=== PATIENT | female | born 1980 | race Caucasian/White ===

== ENCOUNTER 2016-11-05 12:03 | Emergency (ER) | payer BC ==
[2016-11-05 14:12] VITALS: BP 129/75
--- NOTE | 2016-11-05 14:45 | UC ---
Throat Pain/Nasal Evert HPI - HPI Summary HPI Summary: sinus pain/pressure, green purulent drainage for 3 weeks. No history of frequent sinusitis, nonsmoker. Started off like a cold, just never improved. Now headache, PND, can't sleep, constantly blowing nose. Mild cough. Ears painful - History of Current Complaint Chief Complaint: UCRespiratory Stated Complaint: SINUS COMPLAINT Time Seen by Provider: 11/05/16 14:35 Hx Obtained From: Patient Hx Last Menstrual Period: 10/14/16 Onset/Duration: Gradual Onset Severity: Moderate Cough: Nonproductive Associated Signs & Symptoms: Positive: Hoarseness, Sinus Discomfort, Nasal Discharge. Negative: Dysphagia, FB Sensation, Drooling, Fever, Vomiting - Epiglottits Risk Factors Epiglottis Risk Factors: Negative - Allergies/Home Medications Allergies/Adverse Reactions: Allergies Allergy/AdvReac Type Severity Reaction Status Date / Time Ciprofloxacin AdvReac Intermediate See Comment Verified 11/05/16 14:12 PMH/Surg Hx/FS Hx/Imm Hx Previously Healthy: Yes - Surgical History Surgical History: Yes Surgery Procedure, Year, and Place: KIDNEY SURGERY AT AGE 5. Ovarian Cyst 2012 - Family History Known Family History: Negative: Respiratory Disease - no asthma - Social History Occupation: Employed Full-time Lives: With Family Alcohol Use: None Substance Use Type: None Smoking Status (MU): Never Smoked Tobacco Review of Systems Constitutional: Negative Skin: Negative Eyes: Negative ENT: Nasal Discharge, Other - sinus pain Respiratory: Cough - mild Cardiovascular: Negative Gastrointestinal: Negative Genitourinary: Negative Motor: Negative Neurovascular: Negative Musculoskeletal: Negative Neurological: Negative Psychological: Negative All Other Systems Reviewed And Are Negative: Yes Physical Exam Triage Information Reviewed: Yes Appearance: Well-Appearing, No Pain Distress, Well-Nourished Vital Signs: Initial Vital Signs Temp 98.6 F 11/05/16 14:10 Pulse 62 11/05/16 14:10 Resp 16 11/05/16 14:10 BP 129/75 11/05/16 14:10 Pulse Ox 99 11/05/16 14:10 Vital Signs Reviewed: Yes Eye Exam: Normal ENT: Positive: Hearing grossly normal, Pharynx normal, Nasal congestion, Nasal drainage, TMs normal, Muffled/hoarse voice - muffled. Negative: TM bulging, TM red, Tonsillar swelling, Tonsillar exudate, Trismus Neck exam: Normal Respiratory Exam: Normal Respiratory: Positive: Lungs clear, Normal breath sounds, No respiratory distress, No accessory muscle use Cardiovascular Exam: Normal Musculoskeletal Exam: Normal Neurological Exam: Normal Neurological: Positive: Alert, Muscle Tone Normal Psychological Exam: Normal Skin Exam: Normal Throat Pain/Nasal Course/Dx - Differential Dx/Diagnosis Differential Diagnosis/HQI/PQRI: Pharyngitis, Sinusitis, URI Provider Diagnoses: sinusitis Discharge - Discharge Plan Condition: Stable Disposition: HOME Prescriptions: Fluconazole 150 MG (NF) [Diflucan 150 mg (NF)] 150 mg PO ONCE PRN #1 tab PRN Reason: vaginal itching Sulfamethox/Trimethoprim DS* [Bactrim DS 800/160 TAB*] 1 tab PO BID #20 tab Patient Education Materials: Sinusitis (ED) Referrals: Diana Beck [Primary Care Provider] -
== END 2016-11-05 15:00 | disposition home or self-care (01) ==
LOC: UCCORT 12:03
DX: J32.9 Chronic sinusitis, unspecified (principal); Z88.1 Allergy status to other antibiotic agents
CPT/HCPCS: 99212; G0463

== ENCOUNTER 2018-01-15 11:27 | Emergency (ER) | payer BC ==
[2018-01-15 13:31] VITALS: BP 103/65
--- NOTE | 2018-01-15 14:55 | UC ---
Throat Pain/Nasal Evert HPI - HPI Summary HPI Summary: Patient has had worsening sore throat over the past 1-2 weeks that seemed to get better but then returned the last 2 days denies fevers some nasal drip. Patient is 25 weeks expecting normal vaginal delivery - History of Current Complaint Chief Complaint: UCGeneralIllness Stated Complaint: ST/SWOLLEN THROAT GLANDS Time Seen by Provider: 01/15/18 13:33 Hx Obtained From: Patient Hx Last Menstrual Period: 10/14/16 ?: Yes Onset/Duration: Gradual Onset, Worse Since - Past couple days Severity: Moderate Pain Intensity: 7 Pain Scale Used: 0-10 Numeric Cough: None Associated Signs & Symptoms: Positive: Nasal Discharge - Allergies/Home Medications Allergies/Adverse Reactions: Allergies Allergy/AdvReac Type Severity Reaction Status Date / Time ciprofloxacin AdvReac Headache Verified 01/15/18 13:25 Home Medications: Home Medications Pnv No.95/Ferrous Fum/Folic AC [ Multivitamin Tablet] 1 each PO DAILY [History Confirmed 01/15/18] PMH/Surg Hx/FS Hx/Imm Hx Previously Healthy: Yes - Surgical History Surgical History: Yes Surgery Procedure, Year, and Place: KIDNEY SURGERY AT AGE 5. Ovarian Cyst 2014 - Family History Known Family History: Negative: Respiratory Disease - no asthma - Social History Occupation: Employed Full-time Lives: With Family Alcohol Use: None Substance Use Type: None Smoking Status (MU): Never Smoked Tobacco Review of Systems Constitutional: Negative Skin: Negative Eyes: Negative ENT: Sore Throat, Nasal Discharge Respiratory: Negative Cardiovascular: Negative Gastrointestinal: Negative Genitourinary: Negative Motor: Negative Neurovascular: Negative Musculoskeletal: Negative Neurological: Negative Psychological: Negative Is Patient Immunocompromised?: No All Other Systems Reviewed And Are Negative: Yes Physical Exam Triage Information Reviewed: Yes Appearance: Well-Appearing, No Pain Distress, Well-Nourished Vital Signs: Initial Vital Signs Temp 98.3 F 01/15/18 13:24 Pulse 86 01/15/18 13:24 Resp 18 01/15/18 13:24 BP 103/65 01/15/18 13:24 Pulse Ox 100 01/15/18 13:24 Vital Signs Reviewed: Yes Eye Exam: Normal Eyes: Positive: Conjunctiva Clear ENT Exam: Normal ENT: Positive: Normal ENT inspection, Hearing grossly normal, Pharynx normal, Nasal congestion, Nasal drainage, TMs normal, Uvula midline. Negative: Tonsillar swelling, Tonsillar exudate, Trismus, Muffled voice, Hoarse voice, Dental tenderness, Sinus tenderness Dental Exam: Normal Neck exam: Normal Neck: Positive: Supple, Nontender, No Lymphadenopathy Respiratory Exam: Normal Respiratory: Positive: Chest non-tender, Lungs clear, Normal breath sounds, No respiratory distress, No accessory muscle use Cardiovascular Exam: Normal Cardiovascular: Positive: RRR, No Murmur, Pulses Normal, Brisk Capillary Refill Musculoskeletal Exam: Normal Musculoskeletal: Positive: Strength Intact - Vital, ROM Intact, No Edema Neurological Exam: Normal Neurological: Positive: Alert, Muscle Tone Normal Psychological Exam: Normal Skin Exam: Normal Diagnostics - Laboratory Diagnostic Studies Completed/Ordered: Rapid Strep (-) Throat Pain/Nasal Course/Dx - Course Assessment/Plan: Rest increase fluids Tylenol , throat lozenges, nasal saline. Follow with PCP when necessary - Differential Dx/Diagnosis Provider Diagnoses: Rhinitis, sore throat Discharge - Sign-Out/Discharge Documenting (check all that apply): Discharge - Discharge Plan Condition: Stable Disposition: HOME Patient Education Materials: Acetaminophen (By mouth), Sodium Chloride (Into the nose), Rhinosinusitis (ED), Viral Syndrome (ED) Referrals: Diana Beck [Primary Care Provider] - If Needed - Billing Disposition and Condition Condition: STABLE Disposition: HOME
== END 2018-01-15 14:32 | disposition home or self-care (01) ==
LOC: UCCORT 11:27
DX: J00 Acute nasopharyngitis [common cold] (principal); Z88.3 Allergy status to other anti-infective agents
CPT/HCPCS: 87651; 99212; G0463

== ENCOUNTER 2018-01-21 20:20 | Emergency (ER) | payer BC ==
[2018-01-21 20:39] VITALS: BP 107/70
--- NOTE | 2018-01-21 21:19 | UC ---
Back Pain HPI - HPI Summary HPI Summary: 37yo female who is 25 weeks , , c/o sudden onset of lumbago today and was sent home from work. She denies dysuria but has the usual urinary frequency as before. Denies fever, radiation to abdomen, cramps, denies vaginal bleeding. States she came to make sure her baby was fine as she did not notice him moving but as she was waiting at , baby started to move. She does not want to take any medication besides tylenol due to the . - History of Current Complaint Chief Complaint: UCBackPain Stated Complaint: LOWER BACK PAIN Time Seen by Provider: 01/21/18 20:44 Hx Obtained From: Patient Hx Last Menstrual Period: 10/14/16 ?: Yes Onset/Duration: Sudden Onset, Lasting Hours Timing: Constant Severity Initially: Moderate Pain Intensity: 7 Character: Dull, Aching Aggravating Factor(s): Movement, Bending, Walking Alleviating Factor(s): Nothing Associated Signs And Symptoms: Positive: Negative - Risk Factors TAD Risk Factors: Negative Cauda Equina Risk Factors: Negative Epidural Abscess Risk Factors: Negative - Allergies/Home Medications Allergies/Adverse Reactions: Allergies Allergy/AdvReac Type Severity Reaction Status Date / Time ciprofloxacin AdvReac Headache Verified 01/21/18 20:32 Home Medications: Home Medications Acetaminophen TAB* [Tylenol TAB*] 650 mg PO Q4H PRN 01/21/18 [History Confirmed 01/21/18] PMH/Surg Hx/FS Hx/Imm Hx Previously Healthy: Yes - Surgical History Surgical History: Yes Surgery Procedure, Year, and Place: KIDNEY SURGERY AT AGE 5. Ovarian Cyst 2013 - Family History Known Family History: Negative: Respiratory Disease - no asthma - Social History Alcohol Use: None Substance Use Type: None Smoking Status (MU): Never Smoked Tobacco Review of Systems Musculoskeletal: Myalgia All Other Systems Reviewed And Are Negative: Yes Physical Exam Triage Information Reviewed: Yes Vital Signs: Initial Vital Signs Temp 98.1 F 01/21/18 20:33 Pulse 72 01/21/18 20:33 Resp 18 01/21/18 20:33 BP 107/70 01/21/18 20:33 Pulse Ox 100 01/21/18 20:33 Vital Signs Reviewed: Yes Eyes: Positive: Conjunctiva Clear ENT: Positive: Hearing grossly normal Neck: Positive: Supple, Nontender, No Lymphadenopathy Respiratory Exam: Normal Respiratory: Positive: Chest non-tender, Lungs clear, Normal breath sounds Cardiovascular: Positive: RRR, No Murmur, Pulses Normal, Brisk Capillary Refill Abdomen Description: Positive: Nontender, No Organomegaly, Other: - gravid, FHR 132x', variable Bowel Sounds: Positive: Present Back Pain Course/Dx - Course Course Of Treatment: Discussed with patient pain control with ibuprofen or tylenol, stretching. Urinalysis was normal, culture results pending. F.u with PCP and control - Differential Dx/Diagnosis Provider Diagnoses: Lumbago Discharge - Sign-Out/Discharge Documenting (check all that apply): Discharge/Admit/Transfer - Discharge Plan Condition: Stable Disposition: HOME Patient Education Materials: Low Back Strain (ED), Ibuprofen (By mouth), Acetaminophen (By mouth) Referrals: Diana Beck [Primary Care Provider] - - Billing Disposition and Condition Condition: STABLE Disposition: HOME
== END 2018-01-21 21:32 | disposition home or self-care (01) ==
LOC: UCCORT 20:20
DX: M54.5 Low back pain (principal); R35.0 Frequency of micturition; Z33.1 Pregnant state, incidental; Z88.3 Allergy status to other anti-infective agents
CPT/HCPCS: 81003; 87086; 99211; G0463

== ENCOUNTER 2019-02-17 07:18 | Emergency (ER) | payer BC ==
[2019-02-17 07:32] VITALS: BP 117/77
[2019-02-17] MEDS ORDERED: Albuterol/Ipratropium NEB.SOL* Albuterol 2.5 MG/Ipratropium 0.5 MG 3 ML INH ONE (08:01)
--- NOTE | 2019-02-17 08:06 | UC ---
Respiratory Complaint HPI - HPI Summary HPI Summary: 38-year-old female with cold symptoms for approximately 3 weeks. She states in the beginning it was more like a sinus infection with greenish nasal coryza but now it's a moist congested cough but no fever. No history of asthma. She is a nonsmoker. - History of Current Complaint Chief Complaint: UCGeneralIllness Stated Complaint: COUGH, CONGESTION Time Seen by Provider: 02/17/19 07:56 Hx Obtained From: Patient Hx Last Menstrual Period: 02/16/19 ?: No Onset/Duration: Gradual Onset, Lasting Weeks Timing: Intermittent Episodes Severity Initially: Moderate - She has been ill for 3 weeks. Severity Currently: Mild Pain Intensity: 0 Character: Cough: Productive Aggravating Factors: Nothing Alleviating Factors: Nothing Associated Signs And Symptoms: Positive: URI, Nasal Congestion - Allergies/Home Medications Allergies/Adverse Reactions: Allergies Allergy/AdvReac Type Severity Reaction Status Date / Time bee venom protein (honey bee) Allergy Anaphylatic Verified 02/17/19 07:33 Shock ciprofloxacin AdvReac Headache Verified 02/17/19 07:32 PMH/Surg Hx/FS Hx/Imm Hx Previously Healthy: Yes - Surgical History Surgical History: Yes Surgery Procedure, Year, and Place: KIDNEY SURGERY AT AGE 5. Ovarian Cyst 2014 - Family History Known Family History: Negative: Respiratory Disease - no asthma - Social History Alcohol Use: Occasionally Substance Use Type: None Smoking Status (MU): Never Smoked Tobacco Review of Systems All Other Systems Reviewed And Are Negative: Yes Respiratory: Positive: Cough Is Patient Immunocompromised?: No Physical Exam Triage Information Reviewed: Yes Appearance: Well-Appearing, No Pain Distress, Well-Nourished Vital Signs: Initial Vital Signs Temp 98.2 F 02/17/19 07:28 Pulse 55 02/17/19 07:28 Resp 16 02/17/19 07:28 BP 117/77 02/17/19 07:28 Pulse Ox 100 02/17/19 07:28 Vital Signs Reviewed: Yes Eyes: Positive: Conjunctiva Clear ENT: Positive: Pharynx normal, Nasal congestion, TMs normal, Uvula midline Neck: Positive: Supple, Nontender, No Lymphadenopathy Respiratory: Positive: No respiratory distress, No accessory muscle use, Rhonchi - Rhonchi at both bases posteriorly, small wheeze with forced expiration., Wheezing Cardiovascular: Positive: RRR, No Murmur, Pulses Normal, Brisk Capillary Refill Musculoskeletal Exam: Normal Neurological Exam: Normal Psychological Exam: Normal Skin Exam: Normal Respiratory Course/Dx - Course Course Of Treatment: Chest x-ray:REPORT: Elevated lung volumes. No focal pulmonary lesion, compelling alveolar consolidation, pleural effusion, pneumothorax. The heart, pulmonary vasculature , and mediastinal contours are unremarkable. Unremarkable soft tissue contours and osseous structures. IMPRESSION: #. Stigmata of obstructive lung disease. No acute pulmonary or cardiac process evident. I'm going to treat the patient with prednisone and a Z-Rosa. Her lungs had increased air movement following the DuoNeb treatment but still with mild rhonchi in the lower bases. She is in no distress. - Differential Dx/Diagnosis Provider Diagnosis: Bronchitis Discharge - Sign-Out/Discharge Documenting (check all that apply): Patient Departure All imaging exams completed and their final reports reviewed: Yes - Discharge Plan Condition: Fair Disposition: HOME Prescriptions: Azithromyxin ROSA (NF) [Z-Rosa (Zithromax) 250 mg tabs #6] 2 tab PO .TODAY, THEN 1 DAILY #6 tab predniSONE [Prednisone 20 MG TAB] 20 mg PO DAILY 9 Days #18 tablet Patient Education Materials: Acute Bronchitis (ED) Referrals: Diana Beck [Primary Care Provider] - Additional Instructions: Increase fluids, take the prednisone with food, follow-up with your primary care provider if no improvement by next or sooner if worsening symptoms. - Billing Disposition and Condition Condition: FAIR Disposition: Home - Attestation Statements Provider Attestation: Per institutional requirements, I have reviewed the chart, however, I was not consulted specifically or made aware of this patient by the midlevel provider. I did not personally evaluate, interact with , or disposition this patient.
== END 2019-02-17 08:58 | disposition home or self-care (01) ==
LOC: UCCORT 07:18
DX: J40 Bronchitis, not specified as acute or chronic (principal); Z88.1 Allergy status to other antibiotic agents; Z91.030 Bee allergy status
CPT/HCPCS: 71046; 99212; A9270-GY; G0463